=== PATIENT | female | born 1980 | race Caucasian/White ===

== ENCOUNTER 2016-04-26 17:11 | Emergency (ER) | payer MEDICAID ==
[2016-04-26 17:54] VITALS: TEMP 98.3; BMI 25.2
[2016-04-26 18:33] VITALS: BP 145/89; PULSE 106
--- NOTE | 2016-04-26 18:42 | DIRPT ---
CLINICAL DATA: Shortness of breath and back pain. EXAM: CHEST - 2 VIEW COMPARISON: 03/04/2016 FINDINGS: The heart size and mediastinal contours are within normal limits. There is no evidence of pulmonary edema, consolidation, pneumothorax, nodule or pleural fluid. The visualized skeletal structures are unremarkable. IMPRESSION: No active disease. Electronically Signed By: Ritesh Trejo M.D. On: 04/26/2016 18:39
--- NOTE | 2016-04-26 18:46 | EDPRACDOC ---
- General Information Chief Complaint: Anxiety Illness Stated Complaint: DIFF. BREATHING/ BACK PAIN Time Seen by Provider: 04/26/16 18:36 Mode of Arrival: Car Home Medications: Home Medications Escitalopram Oxalate [Lexapro] 10 mg PO DAILY #90 tab 01/28/16 Ketorolac Tromethamine [Toradol] 10 mg PO Q6H PRN #20 tab 04/07/16 Norethindrone-E.estradiol-Iron [Junel Fe 1 mg-20 Mcg Tablet] 1 tab PO DAILY Promethazine [Phenergan] 25 mg PO Q8H PRN #30 tab 04/07/16 HydrOXYzine HCl (Antihistamine [Atarax] 25 mg PO Q6 PRN #30 tab 04/26/16 Ibuprofen Tablet [Motrin] 800 mg PO TID PRN #30 tab 04/26/16 Allergies/Adverse Reactions: Allergies Allergy/AdvReac Type Severity Reaction Status Date / Time Sulfa (Sulfonamide Allergy Severe Anaphylaxis Verified 04/26/16 17:55 Antibiotics) * vancomycin Allergy Severe Anaphylaxis Verified 04/26/16 17:55 * prednisone Allergy Intermediate See Verified 04/26/16 17:55 Comments metoclopramide HCl AdvReac Unknown Unknown/See Verified 04/26/16 17:55 [From Reglan] Comments terbutaline AdvReac Unknown Unknown/See Verified 04/26/16 17:55 Comments - History of Present Illness Onset: LONG STANDING HPI: PT HAS MULTIPLE COMPLAINTS, COMPLAINS OF FEELING LIKE HER SKIN IS CRAWLING, FEELING ANXIOUS, TINGLING ALL OVER, HANDS FEEL COLD, HAS HAD SOBR AND NON-PROD COUGH, PT STATES IS SEEING A CHIROPRACTOR ABOUT HER CHRONIC BACK AND NECK PAIN, STATES HE DID A "TREATMENT" YESTERDAY WITH "ELECTRODES" STATES BACK PAIN WORSE SINCE. PT STATES PT HAD SIMILAR COMPLAINTS LAST WEEK AFTER CHIROPRACTOR TREATMENT. PT STATES SHE DOES NOT CURRENTLY HAVE A PRIMARY CARE DOCTOR AND HAS BEEN OUT OF HER [place] SINCE THE MIDDLE OF MARCH. Reason for Seeking Treatment: Self-referral Presents With: Reports: Anxiety Expresses: Reports: None Suicidal Plan: Reports: None Relevant History: Reports: Anxiety Medication Compliance: No Able to Care for Self: Yes Able to Control Self: Yes Associated Signs and Symptoms: Reports: Anxiety ED Past Medical History - History Reviewed Yes Nurses notes reviewed and agree except as marked - Patient Medical History GI/ History: Reports: Gastroesophageal Reflux. Denies: Urinary Tract Infection Psychological History: Reports: Depression, Anxiety, Bipolar Disorder Systemic History: Reports: Diabetes (hypoglycemic seizures) Additional Past Medical History: FIBROMYALGIA, CHRONIC PAIN Surgical History: Reports: Other (D&C,) - Social Medical History Smoking Status: Heavy tobacco smoker (5 or more cigarettes/day or daily pipe/ cigar) ETOH: None Substance Abuse: None EDM Review of Systems - Review of Systems Constitutional: negative: Chills, Fever Eyes: negative: Blurred Vision, Double Vision Ears: negative: Drainage Throat: negative: Pain Nose: Congestion. negative: Discharge Respiratory: Cough, Shortness of Breath. negative: Wheezing Cardiovascular: Palpitations. negative: Chest Pain Gastrointestinal: negative: Diarrhea, Nausea, Pain, Vomiting Genitourinary: negative: Dysuria, Frequency Neurological: Dizziness, Numbness. negative: Headache, Weakness Musculoskeletal: No Symptoms Reported Integumentary: No Symptoms Reported - Physical Exam Constitutional: Alert (Awake), No apparent distress Oriented to: Time, Person, Place Last recorded Vital Signs: Last Vital Signs Temp 98.3 F 04/26/16 18:33 Pulse 106 04/26/16 18:33 Resp 20 04/26/16 18:33 BP 145/89 04/26/16 18:33 Pulse Ox 98 04/26/16 18:33 Oxygen Pulse Oxygen Saturation 98 O2 Device Room Air Oxygen Flow Rate Fraction of Inspired Oxygen ( FIO2) - HEENT Head: Normal ( normocephalic) Eye Exam: Normal (PERRL, EOMI, Sclera white) Oropharynx: Normal (Pharynx:Moist without exudate,Gums-no swelling) Tympanic Membrane: Normal ENT EAC: Normal TMJ: Normal Nose: No Symptoms Reported (septum midline) Neck: Normal (FROM, trachea at midline) - Respiratory/Cardiovascular Respiratory: Normal - CTA (BBS clear to auscultation without adventitious sounds ) Cardiovascular: Normal (RRR without murmur, gallop or rub) - GI Auscultation: Normal (NABS) Palpation: Normal (Soft,No rebound or guarding, non distended) Tenderness: Non tender Erazo's Sign: Negative - Musculoskeletal Back: Normal (Non-Tender) Extremities: Normal (Normal tone, Pulses 2+ No cyanosis or edema, FROM) - Integumentary Skin: Normal, Warm, Dry Lymphatics: Normal (no adenopathy) - Neurologic Memory Impaired: Normal Motor Function: Normal (Normal tone, Pulses 2+ No cyanosis or edema, FROM) Cranial Nerve: Normal (CN II-X11 intact sensation, strength 5/5) Cerebellar: Normal Mood Description: Normal Perception: Normal Initial Evaluation Apperance: Neat, Casual, Stated Age Attitude: Cooperative Mood: Anxious Affect: Congruent w/ mood Insight: Good Judgement: Good - Differential Diagnosis Anxiety, Depression - Diagnostic Imaging CXR Image interpreted by: Radiologist CHEST - 2 VIEW COMPARISON: 03/04/2016 FINDINGS: The heart size and mediastinal contours are within normal limits. There is no evidence of pulmonary edema, consolidation, pneumothorax, nodule or pleural fluid. The visualized skeletal structures are unremarkable. IMPRESSION: No active disease. - Additional Information Additional Information: OLD CHART REVIEWED, PT SEEN MULTIPLE TIMES IN THE ED FOR SAME COMPLAINTS, HAS BEEN GIVEN PCP REFERRALS NUMEROUS TIMES IN THE PAST BUT HAS NEVER ESTABLISHED WITH PCP. WILL REFER TO PCP AGAIN, ENCOURAGE PCP FOLLOW UP FOR MANAGEMENT OF HER CHRONIC PROBLEMS. Decision Time to Discharge: 18:48 - Departure Disposition: Home Condition: Stable Final Diagnosis: Chronic back pain, Anxiety Instructions: Back Pain Education/Counseling Given To: Patient Education/Counseling Given Regarding: Diagnosis, Treatment, Prognosis, Follow Up Referrals: Dipak Sánchez MD [Staff Physician] - One Week Prescriptions: HydrOXYzine HCl (Antihistamine [Atarax] 25 mg PO Q6 PRN #30 tab PRN Reason: Itching Ibuprofen Tablet [Motrin] 800 mg PO TID PRN #30 tab PRN Reason: Pain Additional Instructions: YOU MUST FOLLOW UP WITH A PRIMARY CARE DOCTOR FOR FURTHER MANAGEMENT OF YOUR CHRONIC COMPLAINTS. YOU HAVE BEEN GIVEN CONTACT INFORMATION FOR DR SÁNCHEZ, A LOCAL PRIMARY CARE DOCTOR, PLEASE CALL HIS OFFICE TOMORROW TO ARRANGE A FOLLOW UP APPOINTMENT.
== END 2016-04-26 19:14 | disposition home or self-care (01) ==
LOC: ED 17:11 → EDMC 19:14
DX: M54.9 Dorsalgia, unspecified (principal); F41.9 Anxiety disorder, unspecified; G89.29 Other chronic pain
CPT/HCPCS: 71020; 99282

== ENCOUNTER 2016-05-21 12:58 | Emergency (ER) | payer MEDICAID ==
[2016-05-21 13:25] VITALS: BP 126/81; PULSE 87; TEMP 98.3; BMI 25.0
--- NOTE | 2016-05-21 14:41 | EDPRACDOC ---
- General Information Chief Complaint: Flu-Like Symptoms Stated Complaint: SINUS INFECTION HEADACHE Time Seen by Provider: 05/21/16 14:26 Information Source: Patient Home Medications: Home Medications Escitalopram Oxalate [Lexapro] 10 mg PO DAILY #90 tab 01/28/16 Norethindrone-E.estradiol-Iron [Junel Fe 1 mg-20 Mcg Tablet] 1 tab PO DAILY Azithromycin [Zithromax] 250 mg PO DAILY #6 tablet 05/21/16 Pseudoephedrine [Sudafed] 240 mg PO DAILY #7 days 05/21/16 Allergies/Adverse Reactions: Allergies Allergy/AdvReac Type Severity Reaction Status Date / Time Sulfa (Sulfonamide Allergy Severe Anaphylaxis Verified 05/21/16 13:26 Antibiotics) * vancomycin Allergy Severe Anaphylaxis Verified 05/21/16 13:26 * prednisone Allergy Intermediate See Verified 05/21/16 13:26 Comments metoclopramide HCl AdvReac Unknown Unknown/See Verified 05/21/16 13:26 [From Reglan] Comments terbutaline AdvReac Unknown Unknown/See Verified 05/21/16 13:26 Comments - History of Present Illness Onset: 3 DAYS HPI: PT PRESENTS TODAY WITH NASAL CONGESTION, HEAD PRESSURE/HARO, LEFT EAR PAIN X 3 DAYS. DENIES FEVER, DIZZINESS, CP, SHOB, ABD PAIN, N/V/D. NO APPARENT DISTRESS. Current Symptoms: Reports: Earache, Headache, Nasal Symptoms Shortness of Breath: None Rhinorrhea: Reports: None Ear Symptoms: Reports: Earache Fever Severity/Quality: Reports: no fever Oral Intake: Normal Urinary Output: Normal Relevant History of: None Associated Signs & Symptoms:: Reports: Headache, Nasal Symptoms ED Past Medical History - History Reviewed Yes Nurses notes reviewed and agree except as marked - Patient Medical History GI/ History: Reports: Gastroesophageal Reflux. Denies: Urinary Tract Infection Psychological History: Reports: Anxiety, Bipolar Disorder. Denies: Depression Systemic History: Reports: Diabetes (hypoglycemic seizures) Additional Past Medical History: FIBROMYALGIA, CHRONIC PAIN Surgical History: Reports: Other (D&C,). Denies: Hysterectomy - Social Medical History Smoking Status: Never smoker EDM Review of Systems - Review of Systems ROS Negative Except as Marked: Yes All systems reviewed and were negative except as marked Constitutional: No Symptoms Reported Eyes: No Symptoms Reported Ears: Pain Throat: No Symptoms Reported Nose: Congestion Respiratory: No Symptoms Reported Cardiovascular: No Symptoms Reported Gastrointestinal: No Symptoms Reported Neurological: Headache Musculoskeletal: No Symptoms Reported Integumentary: No Symptoms Reported - Physical Exam Constitutional: Alert (Awake), No apparent distress Oriented to: Time, Person, Place Last recorded Vital Signs: Last Vital Signs Temp 98.3 F 05/21/16 13:23 Pulse 87 05/21/16 13:23 Resp 18 05/21/16 13:23 BP 126/81 05/21/16 13:23 Pulse Ox 97 05/21/16 13:23 Oxygen Pulse Oxygen Saturation 97 O2 Device Room Air Oxygen Flow Rate Fraction of Inspired Oxygen ( FIO2) - HEENT Head: Tender (TO BILATERAL MAXILLARY SINUSES) Eye Exam: Normal Oropharynx: Normal Tympanic Membrane: Normal ENT EAC: Normal Nose: Congestion Neck: Normal, Denies Pain, Midline - Respiratory/Cardiovascular Respiratory: Normal - CTA Cardiovascular: Normal - GI Palpation: Normal Tenderness: Non tender - Musculoskeletal Back: Normal Extremities: Normal - Integumentary Skin: Normal Lymphatics: Normal - Neurologic Cerebellar: Normal Mood Description: Normal Thought: Coherent Perception: Normal Decision Time to Discharge: 14:39 - Departure Disposition: Home Condition: Good Final Diagnosis: Acute sinusitis Instructions: Sinusitis (ED) Education/Counseling Given To: Patient Education/Counseling Given Regarding: Diagnosis, Treatment, Follow Up Referrals: None,No Provider [Primary Care Provider] - One Week MARISOL COHEN [NonStaff] - One Week Valente Novak Jr, MD [Staff Physician] - One Week Prescriptions: New Azithromycin [Zithromax] 250 mg PO DAILY #6 tablet Pseudoephedrine [Sudafed] 240 mg PO DAILY #7 days No Action Escitalopram Oxalate [Lexapro] 10 mg PO DAILY #90 tab Norethindrone-E.estradiol-Iron [Junel Fe 1 mg-20 Mcg Tablet] 1 tab PO DAILY Additional Instructions: REST AND PLENTY OF FLUIDS. AFRIN OTC MAY PROVIDE SOME ADDITIONAL RELIEF WITH NASAL CONGESTION. FOLLOW UP WITH PCP IN 2-3 DAYS IF NO BETTER.
== END 2016-05-21 15:00 | disposition home or self-care (01) ==
LOC: ED 12:58
DX: J01.90 Acute sinusitis, unspecified (principal)
CPT/HCPCS: 99282